=== PATIENT | female | born 1940 | race Caucasian/White ===

== ENCOUNTER 2016-05-26 20:19 | Emergency (ER) | payer MEDICARE ==
[2016-05-26 20:39] VITALS: TEMP 97.6
[2016-05-26 20:43] VITALS: BMI 30.7
[2016-05-26 21:35] LABS: AUTOMATED BASOPHIL 0.8 % (0-2); AUTOMATED EOSINOPHIL 2.1 % (0-5); AUTOMATED LYMPH 16.6 % (17-44); AUTOMATED MONOCYTE 13.8 % (3-10); AUTOMATED NEUTROPHIL 66.7 % (45-76); MPV 8.9 fL (7.4-10.4)
[2016-05-26 21:42] LABS: PARTIAL THROMB. TIME 30.5 SEC (22-35)
--- NOTE | 2016-05-26 21:46 | DIRPT ---
CLINICAL DATA: Patient with shortness of breath. Irregular heartbeat. EXAM: CHEST 2 VIEW COMPARISON: Chest radiograph 02/02/2015. FINDINGS: Stable cardiac and mediastinal contours. Apical emphysematous change. Bibasilar bronchovascular crowding. No evidence for consolidative pulmonary opacities. Biapical pleural parenchymal thickening. No pleural effusion or pneumothorax. Mid thoracic spine degenerative changes. IMPRESSION: No acute cardiopulmonary process. Electronically Signed By: Akash Mott M.D. On: 05/26/2016 21:43
[2016-05-26] MEDS ORDERED: DILTIAZEM 25 MG/5 ML VIAL IV ONE (21:58)
[2016-05-26 21:59] LABS: BLOOD UREA NITROGEN 22 MG/DL (7-17); CALCULATED OSMOLALITY 272 MOs/Kg (270-290); CHLORIDE 99 mEq/L (98-107); GLUCOSE 109 MG/DL (70-99); SODIUM LEVEL 139 mEq/L (137-146); TOTAL PROTEIN 7.8 G/DL (6.3-8.2)
--- NOTE | 2016-05-26 22:02 | EDPRACDOC ---
- General Information Chief Complaint: Arrhythmia Stated Complaint: IRREGULAR HR Time Seen by Provider: 05/26/16 21:32 Information Source: Patient Mode of Arrival: Car Home Medications: Home Medications Calcium 600 mg PO DAILY 07/15/12 Flecainide Acetate 50 mg PO DAILY 07/15/12 Flecainide Acetate 100 mg PO HS 07/15/12 Fluticasone/Salmeterol [Advair 250-50 Diskus] 1 puff IH BID 07/15/12 Levothyroxine Sodium [Synthroid] 50 mcg PO DAILY 07/15/12 Multivitamin [Multivitamins] 1 tab PO DAILY 07/15/12 Digoxin [Lanoxin, Digitek] 0.125 mg PO MOWEFR 02/02/15 Diltiazem HCl [Cartia Xt] 240 mg PO DAILY 02/02/15 Losartan/Hydrochlorothiazide [Losartan-Hctz 100-12.5 mg Tab] 1 tab PO DAILY 03/09 Pitavastatin Calcium [Livalo] 4 mg PO QHS 02/02/15 Omeprazole [Prilosec] 20 mg PO BID #60 cap 02/03/15 Albuterol Sulfate [Proair Hfa] 2 puff INH Q4H PRN 06/17/15 Aspirin 81 mg PO DAILY 09/13/15 Allergies/Adverse Reactions: Allergies Allergy/AdvReac Type Severity Reaction Status Date / Time diltiazem [From Cardizem] Allergy See Verified 05/26/16 20:39 Comments gabapentin Allergy Edema-Local Verified 05/26/16 20:37 ized - History of Present Illness Onset: early afternoon HPI: with hx of AFIB C/o feeling irregular heart beat with chest tightness, mild SOB starting this afternoon, and had one episode of left side neck pain that resolved. Irregular heartbeat episode lasted 30 mins, but comes back when she lies down. Last episode of same >1 yr ago. Pt takes digoxin and flecanide. Also c/o "cold sx" x 1week and has been taking equuate and mucinex, not DM that she is aware of. Denies fever, N/V/D, change in urine or BM. Med hx = COPD, HDL, HTN , asthma. Inhlaer at home, no home O2, no blood thinner. Symptoms Started: Reports: Suddenly Relevant History: Reports: Arrhythmia Pulse is: Irregular Defibrillator Firing: No Worsens with: Reports: Other (lying down) Associated signs & symptoms: Reports: Chest pain (tightness), Dyspnea (mild) Chest Pain Location: Reports: Substernal Pain Quality: Reports: Tightness Pain Radiation: Reports: Neck (left side) ED Past Medical History - History Reviewed Yes Nurses notes reviewed and agree except as marked - Patient Medical History Neurological History: Denies: Cerebrovascular Accident, Seizures, Dementia, Guillian-Alpine Syndrome, Parkinson's, Multiple Sclerosis Cardiac History: Reports: Atrial Fibrillation, Hypertension, Hypercholesterolemia. Denies: Congestive Heart Failure, Heart Attack, Cardiac Catheterization, CABG, Pacemaker, Syncope Respiratory History: Reports: Asthma, COPD, Emphysema. Denies: Pneumonia, Pulmonary Embolism GI/ History: Reports: Urinary Tract Infection, Diverticulosis. Denies: Renal Disease, Renal Failure, Kidney Stones, Ulcer, Pancreatitis Musculoskeletal History: Reports: Arthritis (HANDS). Denies: Gout Psychological History: Reports: Depression, Anxiety. Denies: Bipolar Disorder Systemic History: Reports: Hypothyroidism. Denies: Cancer, Anemia, Hyperthyroidism Surgical History: Reports: Appendectomy, Cholecystectomy, Tonsillectomy/ Adnoidectomy, Other (Back surgery). Denies: CABG, Angioplasty, Cardiac Catheterization, Hernia Surgery - Family Medical History Reports: Hypertension, Diabetes, Cancer (brother (renal)), Stroke (father), Cardiac Disorders - Social Medical History Smoking Status: Former smoker EDM Review of Systems - Review of Systems ROS Negative Except as Marked: Yes All systems reviewed and were negative except as marked Constitutional: Fatigue Nose: Congestion Respiratory: Cough, Shortness of Breath, Sputum Cardiovascular: Chest Pain - Physical Exam Constitutional: No apparent distress, Alert Oriented to: Time, Person, Place Last recorded Vital Signs: Last Vital Signs Temp 97.6 F 05/26/16 20:39 Pulse 68 05/26/16 20:39 Resp 20 05/26/16 20:39 BP 139/79 05/26/16 20:39 Pulse Ox 96 05/26/16 20:39 Oxygen Pulse Oxygen Saturation 96 O2 Device Oxygen Flow Rate Fraction of Inspired Oxygen ( FIO2) - HEENT Head: Normal Eye Exam: negative: Conjunctival Injection, Scleral Icterus Oropharynx: negative: Drooling TMJ: Normal Nose: No Symptoms Reported Neck: Normal - Respiratory/Cardiovascular Respiratory: Normal - CTA Cardiovascular: Normal - GI Auscultation: Normal Palpation: Normal Tenderness: Non tender - Musculoskeletal Back: Normal Extremities: Normal - Integumentary Skin: Normal - Neurologic Mood Description: Normal Thought: Coherent - Results 05/26/16 21:00 05/26/16 21:00 WBC 12.9 xk/uL (3.8-10.8) H 05/26/16 21:00 RBC 5.37 xM/uL (4.20-5.40) 05/26/16 21:00 Hgb 17.2 g/dL (12.0-16.0) H 05/26/16 21:00 Hct 51.4 % (36-47) H 05/26/16 21:00 MCV 96 fL (81-99) 05/26/16 21:00 MCH 32.0 pg (27-32) 05/26/16 21:00 MCHC 33.5 g/dl (33-36) 05/26/16 21:00 RDW 13.4 % (11.5-14.5) 05/26/16 21:00 Plt Count 259 xk/uL (130-400) 05/26/16 21:00 MPV 8.9 fL (7.4-10.4) 05/26/16 21:00 Neut % (Auto) 66.7 % (45-76) 05/26/16 21:00 Lymph % (Auto) 16.6 % (17-44) L 05/26/16 21:00 [place] % (Auto) 13.8 % (3-10) H 05/26/16 21:00 Eos % (Auto) 2.1 % (0-5) 05/26/16 21:00 Baso % (Auto) 0.8 % (0-2) 05/26/16 21:00 Absolute Neuts (auto) 8.51 xk/uL (1.7-8.2) H 05/26/16 21:00 Absolute Lymphs (auto) 2.06 xk/uL (0.65-4.75) 05/26/16 21:00 PT 9.9 SEC (9.2-11.2) 05/26/16 21:00 INR 1.0 05/26/16 21:00 APTT 30.5 SEC (22-35) 05/26/16 21:00 Lab Results 05/26/16 05/26/16 21:00 21:00 WBC 12.9 H RBC 5.37 Hgb 17.2 H Hct 51.4 H MCV 96 MCH 32.0 MCHC 33.5 RDW 13.4 Plt Count 259 MPV 8.9 Neut % (Auto) 66.7 Lymph % (Auto) 16.6 L [place] % (Auto) 13.8 H Eos % (Auto) 2.1 Baso % (Auto) 0.8 Absolute Neuts (auto) 8.51 H Absolute Lymphs (auto) 2.06 PT 9.9 INR 1.0 APTT 30.5 - EKG EKG #1 Initial EKG Time: 20:31 -: Yes EKG interpreted by me Rate: bpm: 130 [place]inson: LAD Rhythm: Afib (RVR) Block: None ST: Nonsp Comparison: 02/02/15 (sinus joe) - Diagnostic Imaging Chest Image interpreted by: Radiologist EXAM: CHEST 2 VIEW COMPARISON: Chest radiograph 02/02/2015. FINDINGS: Stable cardiac and mediastinal contours. Apical emphysematous change. Bibasilar bronchovascular crowding. No evidence for consolidative pulmonary opacities. Biapical pleural parenchymal thickening. No pleural effusion or pneumothorax. Mid thoracic spine degenerative changes. IMPRESSION: No acute cardiopulmonary process. Electronically Signed By: Akash Mott M.D. On: 05/26/2016 21:43 - Additional Information Additional Information: Pt states that was given cardizem once by injection into arm, not IV amnd had a reaction, but has since had cardizem injected into IV with no problem. Decision Time to Discharge: 01:01 - Departure Disposition: Home Condition: Stable Final Diagnosis: Atrial fibrillation with RVR Instructions: Atrial Fibrillation (ED) Education/Counseling Given To: Patient, Family Member Education/Counseling Given Regarding: Diagnosis, Treatment, Prognosis, Follow Up Referrals: Isabel Krishnamurthy MD [Primary Care Provider] - One Week Forms: ED Discharge Instructions Additional Instructions: Follow up with primary care for low digoxin level. Return to ED for an y new or worsening symptoms.
[2016-05-26 23:13] LABS: LEUKOCYTES/URINE TRACE (NEGATIVE); NITRITE/URINE NEG (NEGATIVE); URINE OCCULT BLOOD NEG (NEG/TRACE); WBC/URINE 0-2 (0-5)
[2016-05-27 01:12] VITALS: BP 120/70; PULSE 68
== END 2016-05-27 01:10 | disposition home or self-care (01) ==
LOC: ED 20:19
DX: I48.91 Unspecified atrial fibrillation (principal)
CPT/HCPCS: 36415; 71020; 80053; 80162; 81001; 83880; 84484; 85025; 85610; 85730; 93005; 96374; 99284; J3490